=== PATIENT | female | born 1980 | race Caucasian/White ===

== ENCOUNTER → 2016-09-30 | Outpatient (CLI) | payer OTHER | LOC: FIMAGING 13:44 | PROVIDERS: ATTEND Obstetrics & Gynecology | DX: O09.522 Supervision of elderly multigravida, second trimester (principal); E03.9 Hypothyroidism, unspecified; Z3A.20 20 weeks gestation of pregnancy ==

== ENCOUNTER 2016-10-12 21:23 | Observation (INO) | payer OTHER ==
--- NOTE | 2016-10-12 22:34 | PDDCSUM ---
Discharge Summary Discharge Summary: Date = 10/12/16 Admission DX = IUP at 21+5 weeks, contractions Discharge DX = IUP at 21+5 weeks, cramping, nabothian cysts Hospital course: Pt had an official US with unofficial results reported to me by the dental service technician that her cervical length was normal at 3.88cm with multiple nabothian cysts seen , including one midline 12mm oblong cyst which is what I was seeing on my own bedside TVUS. Pt is clinically stable with a closed cervix on exam, no contractions on tocometer and feeling improved clinically. Will discharge home if official radiology report confirms findings. F/U as scheduled. Advised decreased strenuous activity and increased hydration w/ all activity. Pain/bleeding/PTL precautions reviewed.
--- NOTE | 2016-10-12 23:34 | GHP ---
[f rep st] HISTORY AND PHYSICAL DATE OF ADMISSION: 10/12/2016 CHIEF COMPLAINT: Contractions. HISTORY OF PRESENT ILLNESS: Patient is a 36-year-old 4, para 1, abortus 2 female at 21 weeks and 5 days estimated gestational age with complaint of contractions. She called earlier on the day of admission reporting feeling contractions every 4-5 minutes. She reports doing a 4-5 mile ski yesterday at 11,000 feet out to a hut but rested after that point. She currently was driving home from [employer] with her daughter. She was advised to rest and hydrate, and then approximately 6 hours later called back stating that her contractions had continued and she was feeling them every 4 minutes. She denied any vaginal bleeding or leakage of fluid and reported good movement. She was advised to come in. Upon arrival, she reported that the contractions were decreasing in intensity but still feeling them approximately every 5 minutes to 6 minutes. No other complaints. OBSTETRIC HISTORY: History of vaginal delivery at 41 weeks in May 2011, history of 2 spontaneous miscarriages. PAST MEDICAL HISTORY: Hypothyroidism. PAST SURGICAL HISTORY: None. ALLERGIES: No known drug allergies. MEDICATIONS: vitamin, Synthroid, and iron. PHYSICAL EXAMINATION: V ITAL SIGNS: Blood pressure 110/59, heart rate 52, temp 36.9 degrees Celsius. Doptones 130s with limited heart rate tracing actually obtained showing moderate variability. Tocometer: No contractions visualized on the tocometer. Patient has reported feeling 2 contractions over the last 30 minutes. GENERAL: No acute distress, well-developed, well-nourished female. CHEST: Clear to auscultation bilaterally. CARDIOVASCULAR: Regular rate and rhythm. ABDOMEN: Gravid and soft and nontender. STERILE VAGINAL EXAM: Cervix is closed, firm and high and slightly deviated to the right side. IMAGING DATA: Bedside transvaginal ultrasound showed a cervix that initially appeared to be 3.6 cm in length; however, on further imaging, there appeared to be fluid versus mucus within the canal, and while it did not seem to connect into the amniotic fluid cavity, it was difficult to ascertain if there was cervical shortening with funneling or suspicious cervical mucus seen within the canal. There was clearly a segment of a closed cervix distally that measured 2.0 cm distal to the fluid seen within the canal. ASSESSMENT: Patient is a 36-year-old 4, para 1, abortus 2 female at 21 weeks and 5 days estimated gestational age with subjective contractions. PLAN: 1. Admit for observation. 2. Contractions: The patient's exam is reassuring with a digitally closed cervix. However, on ultrasound there is a question of whether the cervix was short at 2.0 cm versus just some normal mucus within the canal; therefore, an official ultrasound will be ordered to evaluate her cervical length. 3. Counseling: The patient was counseled regarding the findings, and the plan for official radiology ultrasound. If this is reassuring, then her clinically closed cervix is reassuring overall and will discharge her home. If her cervix is shortened, will consult the perinatologist for further guidance on management as to whether activity restrictions and outpatient followup are a reasonable option or if inpatient management is deemed necessary. /[id number]/MODL MTDD
== END 2016-10-12 23:30 | disposition home or self-care (01) ==
LOC: FLD 21:23
PROVIDERS: ADMIT Obstetrics & Gynecology; ATTEND Obstetrics & Gynecology
DX: O47.02 False labor before 37 completed weeks of gestation, second trimester (principal); Z3A.21 21 weeks gestation of pregnancy; O26.892 Other specified pregnancy related conditions, second trimester; N88.8 Other specified noninflammatory disorders of cervix uteri; E03.9 Hypothyroidism, unspecified; O09.522 Supervision of elderly multigravida, second trimester; O99.282 Endocrine, nutritional and metabolic diseases complicating pregnancy, second trimester
CPT/HCPCS: 76816; G0378

== ENCOUNTER → 2017-02-26 | Outpatient (CLI) | payer OTHER | LOC: FLACT 10:19 | PROVIDERS: ATTEND Obstetrics & Gynecology | DX: O92.29 Other disorders of breast associated with pregnancy and the puerperium (principal) | CPT/HCPCS: G0463 ==

== ENCOUNTER → 2018-12-01 | Outpatient (CLI) | payer OTHER | LOC: FIMAGING 08:05 | PROVIDERS: ATTEND Obstetrics & Gynecology | DX: O28.0 Abnormal hematological finding on antenatal screening of mother (principal); Z3A.01 Less than 8 weeks gestation of pregnancy ==